=== PATIENT | female | born 1965 | race African-American/Black ===

== ENCOUNTER 2021-01-20 10:02 | Outpatient (CLI) | payer MEDICARE | END 2021-01-20 10:03 | disposition home or self-care (01) | LOC: BICMAMMO 10:02 | PROVIDERS: ATTEND Family Medicine | DX: Z12.31 Encounter for screening mammogram for malignant neoplasm of breast (principal) | CPT/HCPCS: 77063; 77067 ==

== ENCOUNTER 2023-12-02 22:11 | Inpatient (IN) | payer OTHER ==
[2023-12-03] MEDS ORDERED: Senokot S 8.6-50 MG TAB PO PRN (00:09)
[2023-12-03 00:49] LABS: #Basophils 0.1 thou/uL (0.0-0.2); #Eosinphils 0.3 thou/uL (0.0-0.7); #Monocytes 0.7 thou/uL (0.11-0.59); #Neutrophils 4.1 thou/uL (1.40-6.50); %Basophils 0.7 % (0.0-1.0); %Eosinophils 4.1 % (0.0-10.0); %Monocytes 10.4 % (0.0-10.0); %Neutrophils 58.2 % (42.0-75.0); Hematocrit 38.2 % (36.0-47.0); Hemoglobin 11.9 g/dL (12.0-16.0); Mean Corpuscular HGB CONC 31.2 g/dL (32.0-36.0); Mean Corpuscular Hemoglobin 31.7 pg (27.0-31.0); Mean Corpuscular Volume 101.9 fl (78.0-98.0); Mean Platelet Volume 9.5 fL (7.4-10.4); Platelet Count 167 10x3/uL (130-400); RBC Distribution Width 13.1 % (11.5-14.5); Red Blood Cell (RBC) Count 3.75 mill/uL (4.20-5.40)
[2023-12-03 01:03] VITALS: BMI 28.1
[2023-12-03 01:03] LABS: INR-International Normal Ratio 1.7; Prothrombin Time 20.1 sec (12.0-14.7)
[2023-12-03 01:04] LABS: PTT 33.1 sec (22.9-36.1)
[2023-12-03 01:12] LABS: ALT (SGPT) 12 U/L (8-55); AST (SGOT) 21 U/L (5-34); Albumin 3.5 g/dL (3.5-5.0); Alkaline Phosphatase 59 U/L (40-110); Anion Gap 10 mmol/L (10-20); BUN (Urea Nitrogen) 30 mg/dL (9.8-20.1); Bilirubin, Total 0.5 mg/dL (0.2-1.2); Calc. Creatinine Clearance 58 mL/min (70-130); Calcium 9.7 mg/dL (7.8-10.44); Carbon Dioxide 25 mmol/L (22-29); Chloride 108 mmol/L (98-107); Estimated GFR 44; Globulin 2.5 g/dL (2.4-3.5); Glucose 114 mg/dL (70-105); Potassium 4.8 mmol/L (3.5-5.1); Sodium 138 mmol/L (136-145)
[2023-12-03 01:14] LABS: Troponin I 0.089 ng/mL (< 0.028)
[2023-12-03] MEDS ORDERED: Ipratropium/Albuterol Sulfate 4 GM AER IH PRN (02:09)
[2023-12-03] MEDS: HYDROcodone/Acetaminophen 5/325 mg Tablet PO PRN (05:48)
[2023-12-03] MEDS: Levothyroxine Sodium 25 MCG TAB PO SCH (05:48)
[2023-12-03 05:49] LABS: INR-International Normal Ratio 1.8; Prothrombin Time 20.6 sec (12.0-14.7)
[2023-12-03 05:59] LABS: Troponin I 0.098 ng/mL (< 0.028)
[2023-12-03] MEDS: Enoxaparin 80 MG (0.8 mL) SYRINGE SC SCH (08:27)
[2023-12-03] MEDS: Docusate 100 MG CAP PO SCH (08:27)
[2023-12-03] MEDS: Digoxin 0.25 MG TAB PO SCH (08:27)
[2023-12-03] MEDS: Aspirin Chewable 81 MG TAB PO SCH (08:27)
[2023-12-03] MEDS: Famotidine 20 MG TAB PO SCH (08:27)
[2023-12-03] MEDS ORDERED: Polyethylene Glycol 3350 17 GM Packet PO PRN (12:24)
[2023-12-03] MEDS: Warfarin Sodium 10 MG TAB PO SCH (16:08)
[2023-12-03] MEDS: Senokot S 8.6-50 MG TAB PO SCH (20:29)
[2023-12-03] MEDS: Atorvastatin Calcium 20 MG TAB PO SCH (20:37)
[2023-12-04 05:10] LABS: #Eosinphils 0.3 thou/uL (0.0-0.7); #Monocytes 0.7 thou/uL (0.11-0.59); #Neutrophils 4.5 thou/uL (1.40-6.50); %Basophils 0.6 % (0.0-1.0); %Eosinophils 4.4 % (0.0-10.0); %Lymphocytes 21.5 % (21.0-51.0); %Monocytes 9.2 % (0.0-10.0); %Neutrophils 63.7 % (42.0-75.0); Hematocrit 37.7 % (36.0-47.0); Hemoglobin 11.6 g/dL (12.0-16.0); Mean Corpuscular HGB CONC 30.8 g/dL (32.0-36.0); Mean Corpuscular Volume 100.8 fl (78.0-98.0); Platelet Count 163 10x3/uL (130-400); RBC Distribution Width 13.1 % (11.5-14.5); Red Blood Cell (RBC) Count 3.74 mill/uL (4.20-5.40); White Blood Cell (WBC) Count 7.1 10x3/uL (4.8-10.8)
[2023-12-04 05:23] LABS: Prothrombin Time 22.5 sec (12.0-14.7)
[2023-12-04 05:32] LABS: Anion Gap 7 mmol/L (10-20); BUN (Urea Nitrogen) 24 mg/dL (9.8-20.1); Calc. Creatinine Clearance 60 mL/min (70-130); Calcium 9.9 mg/dL (7.8-10.44); Carbon Dioxide 25 mmol/L (22-29); Chloride 107 mmol/L (98-107); Estimated GFR 45; Glucose 168 mg/dL (70-105); Potassium 4.4 mmol/L (3.5-5.1); Sodium 135 mmol/L (136-145)
[2023-12-04] MEDS: Ondansetron ODT 4 MG TAB PO PRN (18:29)
[2023-12-04] MEDS: traZODone HCl 50 MG TAB PO SCH (21:52)
[2023-12-05 05:24] LABS: Hematocrit 38.9 % (36.0-47.0); Hemoglobin 12.2 g/dL (12.0-16.0); Platelet Count 167 10x3/uL (130-400)
[2023-12-05 05:43] LABS: INR-International Normal Ratio 2.6; Prothrombin Time 27.8 sec (12.0-14.7)
[2023-12-05] MEDS: Acetaminophen 325 MG TAB PO PRN (09:41)
[2023-12-05 10:44] VITALS: BP 116/89; TEMP 98.1
[2023-12-05] MEDS ORDERED: Warfarin Sodium 5 MG TAB PO SCH (17:00)
[2023-12-05] MEDS ORDERED: Warfarin Sodium 3 MG TAB PO SCH (17:00)
[2023-12-07] MEDS ORDERED: Warfarin Sodium 5 MG TAB PO SCH (17:00)
== END 2023-12-05 11:03 | disposition home or self-care (01) | DRG 175 ==
LOC: 2NO 12-03 00:02 → OBSVTOIN 12-03 00:09
PROVIDERS: ADMIT Student in an Organized Health Care Education/Training Program; ATTEND Hospitalist
DX: I26.99 Other pulmonary embolism without acute cor pulmonale (principal); I21.A1 Myocardial infarction type 2; N17.9 Acute kidney failure, unspecified; I50.42 Chronic combined systolic (congestive) and diastolic (congestive) heart failure; E03.9 Hypothyroidism, unspecified; J44.9 Chronic obstructive pulmonary disease, unspecified; I34.2 Nonrheumatic mitral (valve) stenosis; E78.5 Hyperlipidemia, unspecified; I48.91 Unspecified atrial fibrillation; Z95.2 Presence of prosthetic heart valve; Z79.899 Other long term (current) drug therapy; Z98.890 Other specified postprocedural states; Z79.890 Hormone replacement therapy; Z79.82 Long term (current) use of aspirin
CPT/HCPCS: 36415; 36416; 80048; 80053; 83880; 84484; 85014; 85018; 85025; 85049; 85610; 85730; 93306; 94760; J1650; Q0162